=== PATIENT | female | born 2000 | race Caucasian/White ===

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

== ENCOUNTER 2018-02-11 19:42 | Emergency (ER) | payer OTHER ==
--- NOTE | 2018-02-11 19:52 | PDOC ---
Rapid Medical Evaluation Time Seen by Provider: 02/11/18 19:51 Medical Evaluation: Allergies Allergy/AdvReac Type Severity Reaction Status Date / Time No Known Allergies Allergy Verified 02/21/17 18:30 02/11/18 19:51 I have performed a brief-in person evaluation of this patient. The patient presents with a chief complaint of: "my pee thompson" x3h Pertinent physical exam findings:ABD soft NT/ND I have ordered the following: Upreg/UA/UC The patient will proceed to the ED for further evaluation.
[2018-02-11 19:54] VITALS: BP 120/82; PULSE 82; TEMP 98; BMI 23.1
[2018-02-11 20:15] LABS: HCG,QUALITATIVE URINE NEGATIVE; URINE APPEARANCE CLOUDY; URINE BILIRUBIN NEGATIVE (<2.0 mg/dL); URINE COLOR YELLOW; URINE GLUCOSE (UA) NEGATIVE (NEGATIVE); URINE KETONE NEGATIVE (NEGATIVE); URINE NITRITE NEGATIVE (NEGATIVE); URINE UROBILINOGEN NEGATIVE mg/dL (0.2-1.0)
[2018-02-11 20:19] LABS: URINE LEUK ESTERASE 2+ (NEGATIVE); URINE PROTEIN 2+ (NEGATIVE)
[2018-02-11] MEDS ORDERED: NITROFURANTOIN MACROCRYSTAL 50 MG CAPSULE (FP) PO SCH (20:30)
[2018-02-11] MEDS ORDERED: NITROFURANTOIN MACROCRYSTAL 50 MG CAPSULE (FP) ONE (20:31)
--- NOTE | 2018-02-11 20:32 | PDOC ---
History of Present Illness - General Chief Complaint: Urinary Problem Stated Complaint: UTI Time Seen by Provider: 02/11/18 19:51 - History of Present Illness Initial Comments: 17-year-old female presents for evaluation of dysuria 3 hours. She has a history of UTIs. Other associated symptoms. 02/11/18 20:28 Past History - Past Medical History Allergies/Adverse Reactions: Allergies Allergy/AdvReac Type Severity Reaction Status Date / Time No Known Allergies Allergy Verified 02/11/18 19:55 Home Medications: Ambulatory Orders Chlorphen/Pseudoeph/Ibuprofen [Advil Allergy Sinus Caplet] 1 each PO ASDIR 02/11 Loratadine [Claritin -] 10 mg PO DAILY 02/11/18 Nitrofurantoin Macrocrystal [Macrodantin] 100 mg PO BID #14 capsule 02/11/18 - Reproductive History Therapeutic (s) & number: No - Immunization History Immunization Up to Date: Yes - Suicide/Smoking/Psychosocial Hx Smoking History: Never smoked Have you smoked in the past 12 months: No Information on smoking cessation initiated: No Hx Alcohol Use: No Drug/Substance Use Hx: No Substance Use Type: None Review of Systems - Review of Systems Comments:: GENERAL/CONSTITUTIONAL: [No fever or chills. No weakness. No weight change.] HEAD, EYES, EARS, NOSE AND THROAT: [No change in vision. No ear pain or discharge. No sore throat.] CARDIOVASCULAR: [No chest pain or shortness of breath.] RESPIRATORY: [No cough, wheezing, or hemoptysis.] GASTROINTESTINAL: [No nausea, vomiting, diarrhea or constipation. No rectal bleeding.] GENITOURINARY: [+ dysuria, frequency, change in urination.] MUSCULOSKELETAL: [No joint or muscle swelling or pain. No neck or back pain.] SKIN AND BREASTS: [No rash or easy bruising.] NEUROLOGIC: [No headache, vertigo, loss of consciousness, or loss of sensation.] PSYCHIATRIC: [No depression or anxiety.] ENDOCRINE: [No increased thirst. No abnormal weight change.] HEMATOLOGIC/LYMPHATIC: [No anemia, easy bleeding, or history of blood clots.] ALLERGIC/IMMUNOLOGIC: [No hives or skin allergy. No latex allergy.] 02/11/18 20:28 *Physical Exam - Vital Signs Last Vital Signs Temp Pulse Resp BP Pulse Ox 98.0 F 82 16 120/82 100 02/11/18 19:52 02/11/18 19:52 02/11/18 19:52 02/11/18 19:52 02/11/18 19:52 - Physical Exam Gastrointestinal/Abdominal: positive: Normal Bowel Sounds. negative: Soft, Distended, Guarding, Rebound, Tenderness ED Treatment Course - ADDITIONAL ORDERS Additional order review: Laboratory Results 02/11/18 20:04 Urine Color Yellow Urine Appearance Cloudy Urine pH 5.0 D Ur Specific Turner 1.033 Urine Protein 2+ H Urine Glucose (UA) Negative Urine Ketones Negative Urine Blood 3+ H Urine Nitrite Negative Urine Bilirubin Negative Urine Urobilinogen Negative Ur Leukocyte Esterase 2+ H D Urine HCG, Qual Negative *DC/Admit/Observation/Transfer Diagnosis at time of Disposition: UTI (urinary tract infection) - Discharge Dispostion Disposition: HOME Condition at time of disposition: Stable Decision to Admit order: No - Prescriptions Prescriptions: Nitrofurantoin Macrocrystal [Macrodantin] 100 mg PO BID #14 capsule - Referrals Referrals: Connie Orta DO [Non Staff, Medical] - - Patient Instructions Printed Discharge Instructions: Urinary Tract Infection - Post Discharge Activity
[2018-02-11 21:29] LABS: EPI CELLS FEW /HPF (FEW); URINE BACTERIA RARE /hpf (NONE SEEN); URINE MUCUS MANY
== END 2018-02-11 20:37 | disposition home or self-care (01) ==
LOC: JERFT 19:42
DX: N39.0 Urinary tract infection, site not specified (principal)
CPT/HCPCS: 81003; 81015; 84703; 87086; 87186; 99281-25

== ENCOUNTER 2018-06-17 20:28 | Emergency (ER) | payer OTHER ==
--- NOTE | 2018-06-17 20:39 | PDOC ---
Rapid Medical Evaluation Time Seen by Provider: 06/17/18 20:35 Medical Evaluation: Allergies Allergy/AdvReac Type Severity Reaction Status Date / Time No Known Allergies Allergy Verified 02/11/18 19:55 06/17/18 20:35 I have performed a brief in-person evaluation of this patient. The patient presents with a chief complaint of: Intermittent low back pain x months, now radiating to RLE x 1-2 months, no LE weakness, sxs, n/v/f/c Pertinent physical exam findings: unremarkable I have ordered the following:nothing The patient will proceed to the ED for further evaluation. Discharge Disposition - Diagnosis Low back pain Qualifiers: Chronicity: acute Back pain laterality: right Sciatica presence: unspecified whether sciatica present Qualified Code(s): M54.5 - Low back pain - Referrals - Patient Instructions - Post Discharge Activity
[2018-06-17 20:47] VITALS: BP 119/74; PULSE 75; TEMP 98.7; BMI 24.9
[2018-06-17] MEDS ORDERED: KETOROLAC TROMETHAMINE 60 MG/2 ML VIAL IM ONE (21:13)
--- NOTE | 2018-06-17 21:20 | PDOC ---
History of Present Illness - General Chief Complaint: Pain Stated Complaint: BACK PAIN Time Seen by Provider: 06/17/18 20:35 History Source: Patient Exam Limitations: No Limitations - History of Present Illness Initial Comments: 06/17/18 21:14 c/o one month low back pain now radiates to right buttock and thigh causing burning sensation. Pt denies trauma no abd pain or urinary complaints. 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 - Past Medical History Allergies/Adverse Reactions: Allergies Allergy/AdvReac Type Severity Reaction Status Date / Time No Known Allergies Allergy Verified 06/17/18 20:37 Home Medications: Ambulatory Orders Cyclobenzaprine HCl [Flexeril -] 10 mg PO TID PRN #21 tablet 06/17/18 Ibuprofen 600 mg PO TID PRN #30 tablet 06/17/18 COPD: No Other medical history: Pt denies - Reproductive History Therapeutic (s) & number: No - Immunization History Immunization Up to Date: Yes - Suicide/Smoking/Psychosocial Hx Smoking History: Never smoked Have you smoked in the past 12 months: No Information on smoking cessation initiated: No Hx Alcohol Use: No Drug/Substance Use Hx: No Substance Use Type: None Review of Systems - Review of Systems Able to Perform ROS?: Yes Is the patient limited Kiswahili proficient: No Musculoskeletal: Yes: Symptoms Reported, Back Pain *Physical Exam - Vital Signs Last Vital Signs Temp Pulse Resp BP Pulse Ox 98.7 F 75 18 119/74 98 06/17/18 20:38 06/17/18 20:38 06/17/18 20:38 06/17/18 20:38 06/17/18 20:38 - Physical Exam General Appearance: Yes: Nourished, Appropriately Dressed HEENT: positive: EOMI, JORGE Neck: positive: Supple Respiratory/Chest: positive: Lungs Clear, Normal Breath Sounds Cardiovascular: positive: Regular Rhythm, Regular Rate Gastrointestinal/Abdominal: positive: Normal Bowel Sounds, Soft. negative: Tender Musculoskeletal: positive: Normal Inspection, Decreased Range of Motion (due to pain ), Muscle Spasm. 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 intact, Fully Oriented, Alert, Normal Mood/ Affect, Normal Response, Motor Strength 02/05 Medical Decision Making - Medical Decision Making 06/17/18 21:14 cc: low back pain with sciatica neg saddle anesthesia , neg urine or bowel dysfunction will r/o r/o UTI toradol for pain dc with flexeril and ibuprofen for pain follow up with 06/17/18 21:17 *DC/Admit/Observation/Transfer Diagnosis at time of Disposition: Low back pain Qualifiers: Chronicity: acute Back pain laterality: right Sciatica presence: unspecified whether sciatica present Qualified Code(s): M54.5 - Low back pain Sciatica Qualifiers: Laterality: right Qualified Code(s): M54.31 - Sciatica, right side - Discharge Dispostion Disposition: HOME Condition at time of disposition: Good - Prescriptions Prescriptions: Cyclobenzaprine HCl [Flexeril -] 10 mg PO TID PRN #21 tablet PRN Reason: Muscle Spasms Ibuprofen 600 mg PO TID PRN #30 tablet PRN Reason: Back Pain - Referrals Referrals: Keshav Greenberg MD [Staff Physician] - - Patient Instructions Printed Discharge Instructions: DI for Back Pain With Sciatica Additional Instructions: apply ice every 4-6hrs for 20 minutes then apply heating pad or warm compress for 20-30 minutes take flexeril for any muscle spasm "stiffness", this may make you drowsy so don' t take at work take ibuprofen 600mg every 8hrs for pain apply Icy Hot topical patches sold over the counter for back pain follow with the orthopedist or the neurosurgeon Dr. Sanchez for follow up next week any worsening symptoms return to the ER - Post Discharge Activity
[2018-06-17 21:28] LABS: URINE APPEARANCE SLCLOUDY; URINE BILIRUBIN NEGATIVE (<2.0 mg/dL); URINE COLOR LTYELLOW; URINE GLUCOSE (UA) NEGATIVE (NEGATIVE); URINE KETONE NEGATIVE (NEGATIVE); URINE NITRITE NEGATIVE (NEGATIVE); URINE PROTEIN NEGATIVE (NEGATIVE); URINE UROBILINOGEN NEGATIVE mg/dL (0.2-1.0)
[2018-06-17 21:30] LABS: URINE LEUK ESTERASE 1+ (NEGATIVE)
[2018-06-17 21:31] LABS: EPI CELLS FEW /HPF (FEW); URINE MUCUS RARE
[2018-06-17 21:35] LABS: HCG,QUALITATIVE URINE Negative
[2018-06-17] MEDS ORDERED: KETOROLAC TROMETHAMINE 60 MG/2 ML VIAL ONE (21:38)
== END 2018-06-17 21:47 | disposition home or self-care (01) ==
LOC: JERFT 20:28
PROC: 3E0233Z Introduction of Anti-inflammatory into Muscle, Percutaneous Approach (ICD-10-PCS; principal; 2018-06-17)
DX: M54.41 Lumbago with sciatica, right side (principal)
CPT/HCPCS: 81003; 81015; 84703; 96372; 99281-25

== ENCOUNTER 2019-02-03 16:07 | Emergency (ER) | payer OTHER ==
--- NOTE | 2019-02-03 16:28 | PDOC ---
Rapid Medical Evaluation Time Seen by Provider: 02/03/19 16:27 Medical Evaluation: Allergies Allergy/AdvReac Type Severity Reaction Status Date / Time No Known Allergies Allergy Verified 06/17/18 20:37 02/03/19 16:27 CC: Complains of allergies flare up PE: Nasal congestion Orders: U Preg Discharge Disposition - Diagnosis Seasonal allergies - Referrals - Patient Instructions - Post Discharge Activity
[2019-02-03 16:31] VITALS: BP 121/66; PULSE 62; TEMP 98; BMI 25.7
[2019-02-03] MEDS ORDERED: ALBUTEROL SO4 2.5/IPRATROPIUM 0.5 INH SOL 3 ML VIAL.NEB. NEB ONE ×2 (17:08→17:16)
[2019-02-03] MEDS ORDERED: diphenhydrAMINE HCL 25 MG CAPSULE (FP) PO ONE ×2 (17:09→17:15)
--- NOTE | 2019-02-03 17:09 | PDOC ---
History of Present Illness - General Chief Complaint: Cold Symptoms Stated Complaint: Cold Symptoms Time Seen by Provider: 02/03/19 16:27 Past History - Past Medical History Allergies/Adverse Reactions: Allergies Allergy/AdvReac Type Severity Reaction Status Date / Time No Known Allergies Allergy Verified 02/03/19 16:27 Home Medications: Ambulatory Orders Albuterol 0.083% Nebulizer Meryl [Ventolin 0.083% Nebulizer Soln -] 1 neb NEB Q4H #20 vial 02/03/19 Fluticasone Prop 0.05% Nasal [Flonase -] 1 - 2 spray NS DAILY #1 spray.pump 12/20 COPD: No - Reproductive History Therapeutic (s) & number: No - Immunization History Immunization Up to Date: Yes - Suicide/Smoking/Psychosocial Hx Smoking History: Never smoked Have you smoked in the past 12 months: No Information on smoking cessation initiated: No Hx Alcohol Use: No Drug/Substance Use Hx: No Substance Use Type: None *Physical Exam - Vital Signs Last Vital Signs Temp Pulse Resp BP Pulse Ox 98.0 F 62 16 121/66 100 02/03/19 16:27 02/03/19 16:27 02/03/19 16:27 02/03/19 16:27 02/03/19 16:27 *DC/Admit/Observation/Transfer Diagnosis at time of Disposition: Seasonal allergies Qualifiers: Allergic rhinitis trigger: unspecified Qualified Code(s): J30.2 - Other seasonal allergic rhinitis - Discharge Dispostion Disposition: HOME Condition at time of disposition: Stable Decision to Admit order: No - Referrals Referrals: Campos Ralph MD [Staff Physician] - - Patient Instructions Printed Discharge Instructions: Allergic Rhinitis Additional Instructions: You were evaluated for her seasonal allergies. Please use the albuterol nebulizer every 4 hours as needed for difficulty breathing or wheezing. Continue taking her daily Zyrtec. Use the Flonase nasal spray twice a day to help with her congestion Follow up with your primary care doctor. Return to the ER for any new or worsening symptoms. - Post Discharge Activity Forms/Work/School Notes: Back to Work
== END 2019-02-03 18:30 | disposition home or self-care (01) ==
LOC: JERFT 16:07
PROC: 3E0F7GC Introduction of Other Therapeutic Substance into Respiratory Tract, Via Natural or Artificial Opening (ICD-10-PCS; principal; 2019-02-03)
DX: J30.2 Other seasonal allergic rhinitis (principal)
CPT/HCPCS: 84703; 87070; 87880; 94640; 99281-25

== ENCOUNTER 2019-07-20 20:18 | Emergency (ER) | payer OTHER ==
[2019-07-20 20:20] VITALS: BP 119/70; PULSE 70; TEMP 98; BMI 24.0
--- NOTE | 2019-07-20 20:21 | PDOC ---
Rapid Medical Evaluation Time Seen by Provider: 07/20/19 20:18 Medical Evaluation: Allergies Allergy/AdvReac Type Severity Reaction Status Date / Time No Known Allergies Allergy Verified 02/03/19 16:27 07/20/19 20:19 I have performed a brief in-person evaluation of this patient. The patient presents with a chief complaint of: requests std testing, vaginal itching since yesterday, used monistat yesterday "just wants to make sure" Pertinent physical exam findings: deferred I have ordered the following: urine The patient will proceed to the ED for further evaluation. Discharge Disposition - Diagnosis Screening for STD (sexually transmitted disease) - Referrals - Patient Instructions - Post Discharge Activity
[2019-07-20] MEDS ORDERED: AZITHROMYCIN 500 MG TABLET PO ONE (20:35)
--- NOTE | 2019-07-20 20:37 | PDOC ---
History of Present Illness - General Chief Complaint: Vaginal Sxs Stated Complaint: ABD Time Seen by Provider: 07/20/19 20:18 - History of Present Illness Initial Comments: 07/20/19 20:32 CHIEF COMPLAINT: vaginal symptoms HISTORY OF PRESENT ILLNESS: 18 yo F with no significant PMH reports that her ex boyfriend recently told her that he was having burning and pain with urination. Patient denies any discharge, frequency, or pain and states she has only had vaginal itching since yesterday. She did use Monistat yesterday which seemed to help some but she has also had a new partner in the past 3 months and would like to get tested "just in case." No recent travel or sick contacts. PAST MEDICAL HISTORY: Denies past medical history FAMILY HISTORY: Denies SOCIAL HISTORY: Denies tobacco, alcohol, illicit drug use. SURGICAL HISTORY: Denies ALLERGIES: No known drug allergies REVIEW OF SYSTEMS General/Constitutional: Denies fever or chills. Denies weakness, weight change. HEENT: Denies change in vision. Denies ear pain or discharge. Denies sore throat. Cardiovascular: Denies chest pain or shortness of breath. Respiratory: Denies cough, wheezing, or hemoptysis. Gastrointestinal: Denies nausea, vomiting, diarrhea or constipation. Denies rectal bleeding. Genitourinary: vaginal itching, denies dysuria, hematuria, discharge. Musculoskeletal: Denies joint or muscle swelling or pain. Denies neck or back pain. Skin and breasts: Denies rash or easy bruising. Neurologic: Denies headache, vertigo, loss of consciousness, or loss of sensation. Psychiatric: Denies depression or anxiety. Endocrine: Denies increased thirst. Denies abnormal weight change. Hematologic/Lymphatic: Denies anemia, easy bleeding, or history of blood clots. Allergic/Immunologic: Denies hives or skin allergy. Denies latex allergy. PHYSICAL EXAM General Appearance: Well-appearing, appropriately dressed. No apparent distress , no intoxication. HEENT: EOMI, PERRLA, normal ENT inspection, normal voice, TMs normal, pharynx normal. No conjunctival pallor. No photophobia, scleral icterus. Neck: Supple. Trachea midline. No tenderness, rigidity, carotid bruit, stridor , lymphadenopathy, or thyromegaly. Respiratory/Chest: Lungs CTAB. No shortness of breath, chest tenderness, respiratory distress, accessory muscle use. No crackles, rales, rhonchi, stridor , wheezing, dullness Cardiovascular: RRR. S1, S2. No JVD, murmur, bradycardia, tachycardia. Vascular Pulses: Dorsalis-Pedis (R): 2+, Dorsalis-Pedis (L): 2+ Gastrointestinal/Abdominal: Normal bowel sounds. Abdomen soft, non-distended. No tenderness or rebound tenderness. No organomegaly, pulsatile mass, guarding , hernia, hepatomegaly, splenomegaly. Lymphatic: No adenopathy, tenderness. Musculoskeletal/Extremities: Normal inspection. FROM of all extremities, normal capillary refill. Pelvis Stable. No CVA tenderness. No tenderness to extremities, pedal edema, swelling, erythema or deformity. Integumentary: Appropriate color, dry, warm. 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 Fully oriented, alert. Appropriate mood/affect. Motor strength 5/5. No appreciable EOM palsy, facial droop or sensory deficit. 07/20/19 21:19 Past History - Past Medical History Allergies/Adverse Reactions: Allergies Allergy/AdvReac Type Severity Reaction Status Date / Time No Known Allergies Allergy Verified 07/20/19 20:21 Home Medications: Ambulatory Orders Albuterol 0.083% Nebulizer Meryl [Ventolin 0.083% Nebulizer Soln -] 1 neb NEB Q4H #20 vial 02/03/19 Fluticasone Prop 0.05% Nasal [Flonase -] 1 - 2 spray NS DAILY #1 spray.pump 12/20 Albuterol Sulfate Inhaler - [Ventolin HFA Inhaler -] 1 - 2 inh PO Q4H #1 inhaler 02/15/19 Fluconazole [Diflucan] 150 mg PO ONCE #1 tablet 07/20/19 Nitrofurantoin Monohyd/M-Cryst [Macrobid -] 100 mg PO BID #14 capsule 07/20/19 Asthma: Yes COPD: No - Reproductive History Therapeutic (s) & number: No - Immunization History Immunization Up to Date: Yes - Psycho Social/Smoking Cessation Hx Smoking History: Never smoked Have you smoked in the past 12 months: No Hx Alcohol Use: No Drug/Substance Use Hx: No Substance Use Type: None *Physical Exam - Vital Signs Last Vital Signs Temp Pulse Resp BP Pulse Ox 98.0 F 70 18 119/70 100 07/20/19 20:18 07/20/19 20:18 07/20/19 20:18 07/20/19 20:18 07/20/19 20:18 Medical Decision Making - Medical Decision Making 07/20/19 21:14 18 yo F with no significant PMH reports that her ex boyfriend recently told her that he was having burning and pain with urination. -urine patient would like to be treated prophylactically -azithromycin -ceftriaxone diflucan and macrobid rx sent to pharm Advised patient to take medication as prescribed and follow up with PCP if symptoms persist . Advised patient of signs and symptoms for return to ED. Patient verbalized understanding and agrees to plan. Discharge - Discharge Information Problems reviewed: Yes Clinical Impression/Diagnosis: Screening for STD (sexually transmitted disease), Vaginal yeast infection Urinary tract infection Qualifiers: Urinary tract infection type: site unspecified Hematuria presence: without hematuria Qualified Code(s): N39.0 - Urinary tract infection, site not specified Disposition: HOME - Admission No - Additional Discharge Information Prescriptions: Fluconazole [Diflucan] 150 mg PO ONCE #1 tablet Nitrofurantoin Monohyd/M-Cryst [Macrobid -] 100 mg PO BID #14 capsule - Follow up/Referral - Patient Discharge Instructions Patient Printed Discharge Instructions: DI for Vaginal Yeast Infection, DI for Urinary Tract Infection (UTI) - Post Discharge Activity
[2019-07-20] MEDS ORDERED: AZITHROMYCIN 250 MG TABLET ONE (20:39)
[2019-07-20] MEDS ORDERED: LIDOCAINE HCL 1%, 10 MG/ML (20ML VIAL) ONE (20:41)
[2019-07-20 21:07] LABS: EPI CELLS 34.3 /HPF (0-5/HPF); HYALINE CASTS 143 /lpf (0-8); URINE APPEARANCE TURBID; URINE BACTERIA 93.9 /hpf (NEGATIVE); URINE BILIRUBIN NEGATIVE (NEGATIVE); URINE COLOR YELLOW; URINE GLUCOSE (UA) NEGATIVE (NEGATIVE); URINE KETONE NEGATIVE (NEGATIVE); URINE LEUK ESTERASE 2+ (NEGATIVE); URINE NITRITE NEGATIVE (NEGATIVE); URINE PROTEIN NEGATIVE (NEGATIVE); URINE UROBILINOGEN 0.2 mg/dL (0.2-1.0); URINE WBC 54 /hpf (0-5)
== END 2019-07-20 21:17 | disposition home or self-care (01) ==
LOC: JERFT 20:18
DX: B37.3 Candidiasis of vulva and vagina (principal); N39.0 Urinary tract infection, site not specified
CPT/HCPCS: 36415; 81003; 84703; 87086; 87491; 87591; 99283-25

== ENCOUNTER 2019-09-29 11:45 | Emergency (ER) | payer OTHER ==
[2019-09-29 11:53] VITALS: BP 143/76; PULSE 98; TEMP 99.2; BMI 24.0
[2019-09-29] MEDS ORDERED: ONDANSETRON *ODT* 4 MG TABLET SL ONE (12:20)
--- NOTE | 2019-09-29 12:20 | PDOC ---
History of Present Illness - General Chief Complaint: Cold Symptoms Stated Complaint: flu Symptoms Time Seen by Provider: 09/29/19 12:07 History Source: Patient - History of Present Illness Initial Comments: 09/29/19 12:32 18-year-old female complaining of nausea, vomiting, generalized abdominal discomfort and coughing, body aches since this morning. Patient reports that she recently traveled to [place] had diarrheal illness 3 days ago. Yesterday felt better with no diarrhea no vomiting no fever. Has no past medical history Past History - Past Medical History Allergies/Adverse Reactions: Allergies Allergy/AdvReac Type Severity Reaction Status Date / Time No Known Allergies Allergy Verified 09/29/19 11:53 Home Medications: Ambulatory Orders Albuterol 0.083% Nebulizer Meryl [Ventolin 0.083% Nebulizer Soln -] 1 neb NEB Q4H #20 vial 02/03/19 Fluticasone Prop 0.05% Nasal [Flonase -] 1 - 2 spray NS DAILY #1 spray.pump 12/20 Albuterol Sulfate Inhaler - [Ventolin HFA Inhaler -] 1 - 2 inh PO Q4H #1 inhaler 02/15/19 Fluconazole [Diflucan] 150 mg PO ONCE #1 tablet 07/20/19 Nitrofurantoin Monohyd/M-Cryst [Macrobid -] 100 mg PO BID #14 capsule 07/20/19 Cefuroxime Axetil [Cefuroxime] 500 mg PO BID #20 tablet 09/29/19 Ibuprofen 400 mg PO QID PRN #20 tablet 09/29/19 Asthma: Yes COPD: No - Reproductive History Therapeutic (s) & number: No - Immunization History Immunization Up to Date: Yes - Psycho Social/Smoking Cessation Hx Smoking History: Never smoked Have you smoked in the past 12 months: No Hx Alcohol Use: No Drug/Substance Use Hx: No Substance Use Type: None Respiratory Specific PMHX - Complaint Specific PMHX Hx Bronchitis: No Hx Pneumonia: No Hx Pulmonary Embolus: No Hx TB (Tuberculosis): No Review of Systems - Review of Systems Able to Perform ROS?: Yes Is the patient limited Arabic proficient: No Constitutional: No: Symptoms Reported, See HPI, Chills, Diaphoresis, Fever, Loss of Appetite, Malaise, Night Sweats, Weakness, Weight Stable, Unintentional Wgt. Loss, Unexplained wgt Loss, Other HEENTM: Yes: Nose Congestion, Throat Pain Respiratory: Yes: Cough ABD/GI: No: Symptoms Reported, See HPI, Abdominal Distended, Abd. Pain w/ defecation, Blood Streaked Bowels, Constipated, Diarrhea, Difficulty Swallowing , Nausea, Poor Appetite, Poor Fluid Intake, Rectal Bleeding, Vomiting, Indigestion, Abdominal cramping, Tarry Stools, Other *Physical Exam - Vital Signs Last Vital Signs Temp Pulse Resp BP Pulse Ox 99.2 F 98 H 18 143/76 98 09/29/19 11:51 09/29/19 11:51 09/29/19 11:51 09/29/19 11:51 09/29/19 11:51 - Physical Exam General Appearance: Yes: Appropriately Dressed Respiratory/Chest: positive: Lungs Clear, Normal Breath Sounds Cardiovascular: positive: Regular Rhythm, Regular Rate Gastrointestinal/Abdominal: positive: Normal Bowel Sounds, Soft. negative: Tender Musculoskeletal: positive: Normal Inspection. negative: CVA Tenderness Extremity: positive: Normal Capillary Refill, Normal Inspection, Normal Range of Motion Integumentary: positive: Normal Color, Dry, Warm Neurologic: positive: Fully Oriented, Alert ED Progress Note - Progress Note Progress Note: 09/29/19 20:07 viral syndrome; uti P: UA urine influenza strep : negative Discharge - Discharge Information Problems reviewed: Yes Clinical Impression/Diagnosis: Viral syndrome UTI (urinary tract infection) Qualifiers: Urinary tract infection type: acute cystitis Hematuria presence: without hematuria Qualified Code(s): N30.00 - Acute cystitis without hematuria Disposition: HOME - Additional Discharge Information Prescriptions: Cefuroxime Axetil [Cefuroxime] 500 mg PO BID #20 tablet Ibuprofen 400 mg PO QID PRN #20 tablet PRN Reason: Pain - Follow up/Referral - Patient Discharge Instructions Patient Printed Discharge Instructions: Urinary Tract Infection Additional Instructions: drink plenty of fluids Take ibuprofen every 6 hours as needed for pain Take cefuroxime as prescribed Follow-up with your primary care doctor as soon as possible. You need to repeat urine test once your antibiotic is completed. Additional Instructions: * Please call your personal physician to report your Emergency Department visit and to report your progress, if any. * If there is no improvement in symptoms in 2 days call your physician. * Return to the Emergency Department for any worsening symptoms. - Post Discharge Activity Work/Back to School Note: Back to Work
[2019-09-29] MEDS ORDERED: ACETAMINOPHEN 500 MG TABLET (FP) PO ONE (12:33)
[2019-09-29] MEDS ORDERED: ONDANSETRON *ODT* 4 MG TABLET ONE ×2 (12:57→13:00)
[2019-09-29] MEDS ORDERED: ACETAMINOPHEN 325 MG TABLET (FP) ONE (12:57)
[2019-09-29 13:48] LABS: HYALINE CASTS 18 /lpf (0-8); PH,URINE 7.5 (5.0-8.0); URINE APPEARANCE CLOUDY; URINE BACTERIA 667.3 /hpf (NEGATIVE); URINE BILIRUBIN NEGATIVE (NEGATIVE); URINE COLOR YELLOW; URINE GLUCOSE (UA) NEGATIVE (NEGATIVE); URINE KETONE NEGATIVE (NEGATIVE); URINE LEUK ESTERASE 3+ (NEGATIVE); URINE NITRITE NEGATIVE (NEGATIVE); URINE PROTEIN TRACE (NEGATIVE); URINE RBC 2 /hpf (0-4); URINE UROBILINOGEN 0.2 mg/dL (0.2-1.0); URINE WBC 77 /hpf (0-5)
== END 2019-09-29 14:05 | disposition home or self-care (01) ==
LOC: JERFT 11:45
DX: B34.9 Viral infection, unspecified (principal); N39.0 Urinary tract infection, site not specified; J45.909 Unspecified asthma, uncomplicated
CPT/HCPCS: 81003; 84703; 87070; 87804; 87880; 99281-25; Q0162

== ENCOUNTER 2022-06-22 12:01 | Emergency (ER) | payer OTHER ==
[2022-06-22 12:18] VITALS: BP 120/68; PULSE 79; RESP 17; TEMP 98; BMI 22.6
[2022-06-22 14:31] LABS: PH,URINE 6.5 (5.0-8.0); URINE APPEARANCE CLEAR; URINE BILIRUBIN NEGATIVE (NEGATIVE); URINE COLOR YELLOW; URINE GLUCOSE (UA) NEGATIVE (NEGATIVE); URINE KETONE NEGATIVE (NEGATIVE); URINE LEUK ESTERASE NEGATIVE (NEGATIVE); URINE NITRITE NEGATIVE (NEGATIVE); URINE PROTEIN NEGATIVE (NEGATIVE); URINE UROBILINOGEN 0.2 mg/dL (0.2-1.0)
== END 2022-06-22 15:05 | disposition home or self-care (01) ==
LOC: JER 12:01
DX: R10.9 Unspecified abdominal pain (principal)
CPT/HCPCS: 36415; 76830-TC; 81003; 84702; 99284-25